=== PATIENT | female | born 1965 | race Hispanic/Latino ===

== ENCOUNTER 2018-09-30 07:58 | Outpatient (CLI) | payer BC ==
--- NOTE | 2018-09-30 08:30 | MMO ---
Bilateral MAMMO Bilat Screen [facility]. CLINICAL HISTORY: Patient is 52 years old and is seen for screening. The patient has no family history of breast cancer. The patient has no personal history of cancer. VIEWS: The views performed were: bilateral craniocaudal with tomosynthesis and bilateral mediolateral oblique with tomosynthesis. FILMS COMPARED: The present examination has been compared to prior imaging studies performed at [facility] on 11/18/2008, 09/16/2012, 11/02/2014 and 11/26/2016. MAMMOGRAM FINDINGS: The breasts are heterogeneously dense, which could obscure a lesion on mammography. There are benign appearing calcifications seen in the right breast. There are no suspicious masses, suspicious calcifications, or new areas of architectural distortion. IMPRESSION: THERE IS NO MAMMOGRAPHIC EVIDENCE OF MALIGNANCY. A ROUTINE FOLLOW-UP MAMMOGRAM IN 1 YEAR IS RECOMMENDED. THE RESULTS OF THIS EXAM WERE SENT TO THE PATIENT. ACR BI-RADS Category 2 - Benign finding MAMMOGRAPHY NOTE: 1. A negative mammogram report should not delay a biopsy if a dominant of clinically suspicious mass is present. 2. Approximately 10% to 15% of breast cancers are not detected by mammography. 3. Adenosis and dense breasts may obscure an underlying neoplasm.
== END 2018-09-30 07:59 | disposition home or self-care (01) ==
LOC: BICMAMMO 07:58
PROVIDERS: ATTEND Family Medicine
DX: Z12.31 Encounter for screening mammogram for malignant neoplasm of breast (principal)
CPT/HCPCS: 77063; 77067

== ENCOUNTER 2019-06-15 07:08 | Outpatient (CLI) | payer BC ==
--- NOTE | 2019-06-15 08:34 | ULT ---
LIMITED ABDOMEN ULTRASOUND INDICATION: Lower abdominal pain TECHNIQUE: Grayscale, color Doppler and spectral Doppler were obtained of the abdomen. Renal images w ere submitted in a separately ordered renal ultrasound evaluation. COMPARISON: None FINDINGS: Liver: There is diffuse fatty infiltration Main portal vein: Patent with appropriate hepatopedal flow Pancreas: Visualized aspects appeared normal. Gallbladder: Small amount of mobile gallstone seen within the gallbladder body and neck. No gallbladd er wall edema or pericholecystic fluid demonstrated. No sonographic Stevenson's sign reported. Common bile duct:3 mm. Aorta and IVC: Appeared within normal limits. Spleen: 9.2cm in length. No focal splenic lesion is evident. Free fluid: None. IMPRESSION: 1. Diffuse fatty infiltration. 2. Cholelithiasis without sonographic evidence of acute cholecystitis.
--- NOTE | 2019-06-15 08:55 | ULT ---
BILATERAL RENAL ULTRASOUND: Date: 06/15/2019 PROVIDED CLINICAL HISTORY: Abdominal pain. FINDINGS: Right kidney measures about 10.2 x 4.2 x 4.7 cm and demonstrates no evidence for hydronephrosis or ma ss. Left kidney measures about 12.0 x 4.7 x 4.9 cm and demonstrates no evidence for hydronephrosis or mas s. Urinary bladder appears sonographically unremarkable. Fatty infiltration of the liver is partially visualized. IMPRESSION: No evidence for hydronephrosis. POS: [facility]
== END 2019-06-15 07:09 | disposition home or self-care (01) ==
LOC: ULT 07:08
PROVIDERS: ATTEND Family Medicine
DX: N81.10 Cystocele, unspecified (principal); R10.30 Lower abdominal pain, unspecified; K80.20 Calculus of gallbladder without cholecystitis without obstruction
CPT/HCPCS: 76705; 76770

== ENCOUNTER 2020-10-04 15:47 | Outpatient (CLI) | payer BC | END 2020-10-04 15:48 | disposition home or self-care (01) | LOC: BICMAMMO 15:47 | PROVIDERS: ATTEND Family Medicine | DX: Z12.31 Encounter for screening mammogram for malignant neoplasm of breast (principal) | CPT/HCPCS: 77063; 77067 ==

== ENCOUNTER 2023-01-29 10:10 | Outpatient (CLI) | payer BC | END 2023-01-29 10:11 | disposition home or self-care (01) | LOC: BICMAMMO 10:10 | PROVIDERS: ATTEND Family Medicine | DX: Z12.31 Encounter for screening mammogram for malignant neoplasm of breast (principal) | CPT/HCPCS: 77063; 77067 ==